=== PATIENT | female | born 1970 | race African-American/Black ===

== ENCOUNTER → 2020-06-29 | Emergency (ER) | payer OTHER ==
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
== END ==
LOC: ER 06:49
DX: S09.8XXA Other specified injuries of head, initial encounter (principal); M54.2 Cervicalgia; M54.5 Low back pain; V49.9XXA Car occupant (driver) (passenger) injured in unspecified traffic accident, initial encounter; Y93.89 Activity, other specified; Y92.413 State road as the place of occurrence of the external cause; Y99.8 Other external cause status
CPT/HCPCS: 70450; 71045; 72125; 99285